=== PATIENT | female | born 1955 | race Caucasian/White ===

== ENCOUNTER → 2017-02-22 | Outpatient (CLI) | payer BC ==
[~2017-02-22] MED LIST: CITRACAL + D 251 TAB PO; CITRACAL PLUS1 TAB PO; CLARITIN PO; COZAAR 50MG50 MG/TAB PO; FLONASE0.05 MG/AC NS; HUMIRA40 MG/0.8 MR; HYDROXYCHLOROQ200 M1 PO; KERYDIN10 ML TP; LEXAPRO 10MG10 MG PO; MAREPA1200 MG PO; METHOTREXA2.5 MG/TAB PO; METHOTREXATE2.5 M1 PO; MULTIPLE VITAMI1 CAP PO; OMEGA 31000 MG PO; PHENTERMINE30 MG PO; PRILOSEC 20MG20 MG PO; VITAMIN D1000 IU PO; [UNRECOGNIZED DRUG - OTHER] PO
== END ==
LOC: MC.RAD 14:29
DX: Z12.31 Encounter for screening mammogram for malignant neoplasm of breast (principal)

== ENCOUNTER → 2017-11-17 | Outpatient (CLI) | payer BC ==
[~2017-11-17] VITALS: Ht 165.1 cm; Wt 108.6 kg
[2017-11-17 13:34] VITALS: BP 158/82; PULSE 84
== END ==
LOC: LIGHT 09:08
DX: I10 Essential (primary) hypertension (principal); G47.33 Obstructive sleep apnea (adult) (pediatric); E66.9 Obesity, unspecified; Z68.39 Body mass index [BMI] 39.0-39.9, adult; Z71.3 Dietary counseling and surveillance; R73.01 Impaired fasting glucose
CPT/HCPCS: G0463

== ENCOUNTER → 2017-12-22 | Outpatient (CLI) | payer BC ==
[~2017-12-22] VITALS: Ht 165.1 cm; Wt 104.3 kg
[~2017-12-22] MED LIST changes: +CLARITIN 1010 MG/TAB PO; +FLONASEALLERGY NS
[2017-12-22 09:51] VITALS: BP 122/68; PULSE 76
== END ==
LOC: LIGHT 09:41
DX: I10 Essential (primary) hypertension (principal); G47.33 Obstructive sleep apnea (adult) (pediatric); E66.9 Obesity, unspecified; Z68.38 Body mass index [BMI] 38.0-38.9, adult; Z71.3 Dietary counseling and surveillance; R73.01 Impaired fasting glucose
CPT/HCPCS: G0463

== ENCOUNTER → 2018-02-27 | Outpatient (CLI) | payer BC | LOC: MC.RAD 14:18 | DX: Z12.31 Encounter for screening mammogram for malignant neoplasm of breast (principal) ==